=== PATIENT | male | born 2005 | race Two or more races ===

== ENCOUNTER 2024-07-20 10:44 | Emergency (ER) | payer SELFPAY ==
[2024-07-20] MEDS ORDERED: Sodium Chloride 0.9% 2.5 ML Syringe FLUSH PRN (10:47)
[2024-07-20] MEDS ORDERED: Sodium Chloride 0.9% 10 ML Syringe FLUSH PRN (10:47)
[2024-07-20 10:56] LABS: BASOPHILS ABSOLUTE AUTO 0.01 K/uL (0.00-0.20); BASOPHILS PERCENT AUTO 0.1 % (0.0-1.0); EOSINOPHILS ABSOLUTE AUTO 0.05 K/uL (0.00-0.45); EOSINOPHILS PERCENT AUTO 0.5 % (0.0-6.0); HEMATOCRIT 41.4 % (42.0-52.0); HEMOGLOBIN 13.9 g/dL (14.0-18.0); IMMATURE GRAN ABSOLUTE AUTO 0.05 K/uL (0.00-0.05); IMMATURE GRAN PERCENT AUTO 0.5 % (0.0-0.4); LYMPHOCYTES ABSOLUTE AUTO 4.74 K/uL (1.00-4.80); LYMPHOCYTES PERCENT AUTO 47.4 % (24.0-44.0); MEAN CORPUSCULAR HEMOGLOBIN 30.1 pg (28.0-32.0); MEAN CORPUSCULAR HGB CONC 33.6 g/dL (32.0-36.0); MEAN CORPUSCULAR VOLUME 89.6 fL (83.0-99.0); MEAN PLATELET VOLUME 9.4 fL (9.4-12.4); MONOCYTES ABSOLUTE AUTO 0.61 K/uL (0.00-0.80); MONOCYTES PERCENT AUTO 6.1 % (0.0-8.0); NEUTROPHILS ABSOLUTE AUTO 4.54 K/uL (1.80-7.70); NEUTROPHILS PERCENT AUTO 45.4 % (41.0-71.0); PLATELET COUNT,PLT 289 K/uL (150-400); RED BLOOD CELL COUNT 4.62 M/uL (4.52-5.90)
[2024-07-20] MEDS: Diphtheria,Pertussis(Acell),Tetanus Vaccine 0.5 ML Syringe IM ONE (11:33)
[2024-07-20] MEDS: Morphine 4 MG/ML Syringe ONE (11:33)
[2024-07-20 11:35] LABS: A/G RATIO 1.4 (0.9-1.6); ALANINE AMINOTRANSFERASE,ALT 29 IU/L (14-63); ALBUMIN 3.7 g/dL (3.4-5.0); ALKALINE PHOSPHATASE 83 U/L (46-116); ASPARTATE AMNIOTRANSFERASE,AST 22 IU/L (15-37); BILIRUBIN TOTAL 0.4 mg/dL (0.2-1.0); BLOOD UREA NITROGEN,BUN 12 mg/dL (7.0-18.0); CALCIUM 8.6 mg/dL (8.5-10.1); CARBON DIOXIDE,CO2 26.1 mmol/L (21.0-32.0); CHLORIDE,CL 107 mmol/L (98-107); GLUCOSE RANDOM 146 mg/dL (74-106); POTASSIUM,K 3.5 mmol/L (3.5-5.1); PROTEIN TOTAL,TP 6.3 g/dL (6.4-8.2); SODIUM,NA 143 mmol/L (136-148)
[2024-07-20] MEDS: Lidocaine 1% with EPINEPHrine 1:100,000 10 ML MDV ONE (11:35)
[2024-07-20] MEDS: Lactated Ringers 1,000 ML IV SCH (11:35)
[2024-07-20] MEDS: Morphine 4 MG/ML Syringe IVPUSH ONE (11:35)
[2024-07-20] MEDS: Lidocaine 1% with EPINEPHrine 1:100,000 10 ML MDV INJECT ONE (11:35)
[2024-07-20 11:38] LABS: ESTIMATED GFR 111 mL/min (>60)
[2024-07-20] MEDS: ceFAZolin 2 GM in Sodium Chloride 0.9% 50 ML IV ONE (12:48)
[2024-07-20 13:39] LABS: BASOPHILS ABSOLUTE AUTO 0.03 K/uL (0.00-0.20); BASOPHILS PERCENT AUTO 0.1 % (0.0-1.0); EOSINOPHILS ABSOLUTE AUTO 0.01 K/uL (0.00-0.45); HEMATOCRIT 37.9 % (42.0-52.0); HEMOGLOBIN 12.7 g/dL (14.0-18.0); IMMATURE GRAN ABSOLUTE AUTO 0.11 K/uL (0.00-0.05); IMMATURE GRAN PERCENT AUTO 0.5 % (0.0-0.4); LYMPHOCYTES PERCENT AUTO 11.9 % (24.0-44.0); MEAN CORPUSCULAR HEMOGLOBIN 30.4 pg (28.0-32.0); MEAN CORPUSCULAR HGB CONC 33.5 g/dL (32.0-36.0); MEAN CORPUSCULAR VOLUME 90.7 fL (83.0-99.0); MONOCYTES ABSOLUTE AUTO 0.95 K/uL (0.00-0.80); MONOCYTES PERCENT AUTO 4.5 % (0.0-8.0); NEUTROPHILS ABSOLUTE AUTO 17.38 K/uL (1.80-7.70); PLATELET COUNT,PLT 270 K/uL (150-400); RED BLOOD CELL COUNT 4.18 M/uL (4.52-5.90); WHITE BLOOD CELL COUNT,WBC 20.98 K/uL (3.9-11.3)
[2024-07-20] MEDS: Ketorolac 30 MG/ML SDV IVPUSH ONE (14:20)
[2024-07-20] MEDS: Ondansetron 4 MG/2 ML SDV IVPUSH ONE (14:23)
== END 2024-07-20 15:06 | disposition home or self-care (01) ==
LOC: MW.ED 10:44
DX: S01.01XA Laceration without foreign body of scalp, initial encounter (principal); S09.90XA Unspecified injury of head, initial encounter; Z23 Encounter for immunization; W22.8XXA Striking against or struck by other objects, initial encounter
CPT/HCPCS: 12035; 36415; 70450; 70486; 72125; 80053; 85025; 86850; 86900; 86901; 90471; 90715; 96361; 96365; 96375; 99285; J0690; J1885; J2270; J2405; J3490; J7120; 99284